=== PATIENT | female | born 1940 | race Caucasian/White ===

== ENCOUNTER → 2016-05-28 | Outpatient (CLI) | payer MEDICARE ==
--- NOTE | ~2016-05-28 | US37 ---
[facility] A Service of [facility] RADIOLOGY TEXT RESULTS PATIENT: JUDY BURKETT LOCATION: CNIV : 41 UNIT #: [id number] AGE: [address]: Ric Santa MD SEX: F ORDER DR: [id number] [place], [place] [address] [id number] O MR#: [id number] Acc #: [id number] NAME: JUDY BURKETT : 1940 SEX: F STUDY DATE/TIME: 05/28/2016 8:56 UNIT: CNIV ROOM: STUDY DESCRIPTION: US Carotid W/Doppler Bilateral Attending Physician: Ric Santa M.D. Referring Physician: Ric Santa M.D. Ordering Physician: Ric Santa M.D. Primary Care Physician: Generic Doctor Not In System MEDICAL IMAGING REPORT This report is preliminary unless electronic signature is present EXAM Bilateral carotid duplex HISTORY Carotid stenosis FINDINGS Duplex imaging of the carotid arteries was performed. Heterogeneously calcific plaque is seen throughout the common, internal and external carotid arteries. Velocity in the right common carotid artery is 59 cm/second, internal is 109 and external is 241 cm/second. Right ICA:CCA ratio is 1.8. On the left side, plaque is seen in the left common, internal and external carotid arteries, which is once again irregular no active disease hyperechoic. Velocity in the left common carotid is 74, internal is increased to 143 proximally, end diastolic velocity of 35, mid internal is 57 and external is 208 cm/second. Left ICA:CCA ratio is 1.9. Antegrade flow is seen in the right and left vertebral arteries. IMPRESSION 1. Plaque with less than 50% stenosis is seen in the right internal carotid artery. 2. Plaque with 50-69% stenosis is seen in the left internal carotid artery. 3. Antegrade flow is seen in the right and left vertebral arteries. Dictated by... Ric Santa M.D. [facility] A Service of [facility] RADIOLOGY TEXT RESULTS PATIENT: JUDY BURKETT LOCATION: CNIV : 41 UNIT #: [id number] AGE: [address]: Ric Santa MD SEX: F ORDER DR: THIS IS AN ELECTRONICALLY VERIFIED REPORT Ric Santa M.D. at 06/05/2016 9:45 AM SA/boby TD: 05/28/2016 17:05 JOB #: [id number] MEDICAL IMAGING REPORT Page 1 of 1 COPY
== END | disposition home or self-care (01) ==
LOC: CNIV 08:19
DX: I65.23 Occlusion and stenosis of bilateral carotid arteries (principal)
CPT/HCPCS: 93880